=== PATIENT | male | born 1960 | race Caucasian/White ===

== ENCOUNTER 2023-06-26 09:10 | Day surgery (SDC) | payer BC ==
[2023-06-25 10:22] VITALS: BMI 25.0
[2023-06-26] MEDS ORDERED: PROPOFOL 60 ML ONE (09:42)
[2023-06-26] MEDS ORDERED: Lidocaine 1% PF 5 ML VIAL ONE (09:43)
== END 2023-06-26 11:48 | disposition home or self-care (01) ==
LOC: CSHSDC 09:10
PROVIDERS: ATTEND Internal Medicine Gastroenterology
PROC: 0DBM8ZZ Excision of Descending Colon, Via Natural or Artificial Opening Endoscopic (ICD-10-PCS; principal; 2023-06-26)
DX: Z12.11 Encounter for screening for malignant neoplasm of colon (principal); D12.4 Benign neoplasm of descending colon; K57.30 Diverticulosis of large intestine without perforation or abscess without bleeding; K62.89 Other specified diseases of anus and rectum; E03.9 Hypothyroidism, unspecified; E78.5 Hyperlipidemia, unspecified; Z87.891 Personal history of nicotine dependence; Z79.899 Other long term (current) drug therapy; Z79.890 Hormone replacement therapy; Z86.010 Personal history of colon polyps
CPT/HCPCS: 88305; J2704